=== PATIENT | female | born 1980 | race Caucasian/White ===

== ENCOUNTER 2024-10-26 20:10 | Emergency (ER) | payer SELFPAY ==
[2024-10-26] VITALS (8 sets, daily range): BP systolic 95–148; BP diastolic 51–94; PULSE 115–167; RESP 16–34; TEMP 37.3; O2SAT 94–99
--- NOTE | 2024-10-26 20:20 | XRR_ITS ---
PROCEDURE INFORMATION: Exam: XR Chest Exam date and time: 10/26/2024 8:23 PM Age: 44 years old Clinical indication: Multiple seizures. Reported history of seizure disorder. ; Additional info: Anel TECHNIQUE: Imaging protocol: Radiologic exam of the chest. Views: 1 view. COMPARISON: No relevant prior studies available. FINDINGS: Lungs: Very mild predominantly linear left basilar airspace disease. Right lung appears grossly clear. Pleural spaces: Unremarkable. No pleural effusion. No pneumothorax. Heart/Mediastinum: Unremarkable. No cardiomegaly. Bones/joints: Unremarkable. XR/XR chest 1V portable [id number] IMPRESSION: Mild left basilar airspace disease most suggestive of subsegmental atelectasis rather than infiltrate.
--- NOTE | 2024-10-26 20:20 | CTR_ITS ---
PROCEDURE INFORMATION: Exam: CT Head Without Contrast Exam date and time: 10/26/2024 8:48 PM Age: 44 years old Clinical indication: Multiple seizures. Reported history of seizure disorder. ; Additional info: Sz TECHNIQUE: Imaging protocol: Computed tomography of the head without contrast. Radiation optimization: All CT scans at this facility use at least one of these dose optimization techniques: automated exposure control; mA and/or kV adjustment per patient size (includes targeted exams where dose is matched to clinical indication); or iterative reconstruction. COMPARISON: No relevant prior studies available. RADIATION DOSE METRICS: Total DLP (mGy-cm): 1017.58 FINDINGS: Brain: No acute infarction, hemorrhage, mass, or extra-axial fluid collection is identified. No midline shift. Cerebral ventricles: No hydrocephalus. Paranasal sinuses: Paranasal sinuses are grossly clear. Mastoid air cells: Mastoid air cells are grossly clear. Bones: Calvarium appears intact. Soft tissues: Unremarkable. CT/CT head wo con* [id number] IMPRESSION: No acute intracranial abnormality.
--- NOTE | 2024-10-26 20:21 | ECG_ITS ---
[facility] Date: 2024-10-26 Pat Name: Nicki Owen Department: Room: Gender: Female Instrument Repairer: : 1980 Requested By: Ashish Mccloud Order Number: [id number] [place] MD: Crystal Madrid M.D. Measurements Intervals Premier Rate: 129 P: 62 IL: 151 QRS: 51 QRSD: 80 T: 37 QT: 384 QTc: 564 Interpretive Statements SINUS TACHYCARDIA NONSPECIFIC ST & T-WAVE ABNORMALITY ABNORMAL RHYTHM ECG No previous ECG available for comparison Electronically Signed On 10-28-2024 08:14:37 CDT by Crystal Madrid M.D. [email or web address] [id number]
[2024-10-26] MEDS: LORazepam 1 MG/0.5 ML injection 2 MG IVP ×2 (20:29→20:32)
--- OUTSIDE RECORDS SUMMARY | 2024-10-26 20:37 | XMS_ITS | Encounter Summary ---
Author Organization [facility] Address [address] [place] [address] Care Team Providers Care Asphalt Spreader Operator Name Role Phone Yeimy Ramon APRN Primary Care Provider [phone] Encounter Details Date Type Department Care Team ([facility] st Contact Info) Description 04/15/2024 Outside Records [facility] [address] [facility] [place] [address] Interface, Provider Social History Tobacco Use Types Packs/Day Years Used Date Smoking Tobacco: Never Smokeless Tobacco: Never Alcohol Use Standard Drinks/Week Comments Never 0 (1 standard drink = 0.6 oz pur e alcohol) Health Literacy Answer Date Recorded Health Literacy 1 05/08/2023 Comments Unknown Sex and Gender Information Value Date Recorded Sex Assigned at Not on file Legal Sex Female 1:59 PM CDT Gender Identity Not on file Sexual Orientation Not on file documented as of this encounter Plan of Treatment Not on file documented as of this encounter Visit Diagnoses Not on filedocumented in this encounter Care Teams Asphalt Spreader Operator Relationship Specialty Start Date End Date Yeimy Ramon APRN [address] [phone] PCP - General Nurse Practitioner Family 04/23/24 documented as of this encounter
--- OUTSIDE RECORDS SUMMARY | 2024-10-26 20:37 | XMS_ITS | Encounter Summary ---
Author Organization [facility] Address [address] [place] [address] Care Team Providers Care Marketing Operations Assistant Name Role Phone Yeimy Ramon APRN Primary Care Provider [phone] Reason for Referral * EVAL & TREAT (Routine) - Closed Specialty Diagnoses / Procedures Referred By Contac t Referred To Contact Neurology Diagnoses Unspecified convulsions (HCC) Seizure (HCC) Penny Maloney MD [facility] [address] [place] [address] Phone: tel: fax: [facility] [address] [place] [address] Phone: tel: fax: Referral ID Status Reason Start Date Expiration Date V isits Requested Visits Authorized [id number] Closed Specialty Services Required 03/20/2024 03/20/2025 1 1 Question Answer Additional Detail Epilepsy ? No FORGER Encounter Details Date Type Department Care Team (Late st Contact Info) Description 03/20/2024 Order Engraver [place] [address] External Referring Provider, Not In System [address] [place] [address] Unspecified convulsions (HCC) (Primary Dx); Seizure (HCC) Social History Tobacco Use Types Packs/Day Years [...] as of this encounter Plan of Treatment Scheduled Referrals Name Type Priority Associated Diagnoses Order Schedule Ambulatory Referral to Neurology Outpatient Referral Routine Unspecified convulsions (HCC) Seizure (HCC) 1 Occurrences starting 03/20/2024 until 03/20/2025 documented as of this encounter Visit Diagnoses Diagnosis Unspecified convulsions (HCC)- Primary Seizure (HCC) Other convulsions documented in this encounter Care Teams Marketing Operations Assistant Relationship Specialty Start Date End Date Yeimy Ramon APRN [address] [address] PCP - General Nurse Practitioner Family 04/23/24 documented as of this encounter
--- OUTSIDE RECORDS SUMMARY | 2024-10-26 20:37 | XMS_ITS | Encounter Summary ---
Author Organization [facility] Address [address] [place] [address] Care Team Providers Care Overedge Machine Operator Name Role Phone TristenYeimy ASAF Primary Care Provider [phone] Reason for Referral * EVAL & TREAT (Urgent) - Closed Specialty Diagnoses / Procedures Referred By Carl martin Referred To Contact Gastroenterology Diagnoses Sclerosing mesenteritis (HCC) Dariana Ward NP [address] [place] [address] Phone: tel: fax: [facility] [address] [place] [address] Phone: tel: fax: Referral ID Status Reason Start Date Expiration Date V isits Requested Visits Authorized [id number] Closed Specialty Services Required 09/25/2022 09/26/2023 1 1 Question Answer Additional Details General GI Clinic Encounter Details Date Type Department Care Team (Latest Contact Info) Description 09/25/2022 Order Battery Container [place] [address] Dariana Wadr NP [address] [phone] Sclerosing mesenteritis (HCC) (Primary Dx) Social History Tobacco Use Types Packs/Day Years Used Date Smoking Tobacco: Never Assessed Comments Unknown Sex and Gender Information Value Date Recorded Sex Assigned at Not on file Legal Sex Female 1:59 PM CDT Gender Identity Not on file Sexual Orientation Not on file documented as of this encounter Plan of Treatment Scheduled Referrals Name Type Priority Associated Diagnoses Order Schedule Ambulatory Referral to Gastroenterology Outpatient Referral Routine Sclerosing mesenteritis (HCC) 1 Occurrences starting 09/25/2022 until 09/26/2023 documented as of this encounter Visit Diagnoses Diagnosis Sclerosing mesenteritis (HCC)- Primary Sclerosing mesenteritis documented in this encounter Care Teams Overedge Machine Operator Relationship Specialty Start Date End Date Yeimy Ramon APRN [address] [phone] PCP - General Nurse Practitioner Family 04/23/24 documented as of this encounter
--- OUTSIDE RECORDS SUMMARY | 2024-10-26 20:37 | XMS_ITS | Encounter Summary ---
Author Organization [facility] Address [address] [place] [address] Care Team Providers Care Lifestyle Coordinator Name Role Phone Isabel Torres Primary Care Provider [phone] Encounter Details Date Type Department Care Team (Late Contact Info) Description 11/28/2016 Orders Only [facility] Radiology [address] [facility] [place] [address] System, Provider Not In, [address] [facility] [place] [address] Social History Tobacco Use Types Packs/Day Years Used Date Smoking Tobacco: Never Alcohol Use Standard Drinks/Week Comments Yes 0 (1 standard drink = 0.6 oz pur e alcohol) rarely Comments No Sex and Gender Information Value Date Recorded Sex Assigned at Not on file Legal Sex Female 10:37 AM CDT Gender Identity Not on file Sexual Orientation Not on file documented as of this encounter Plan of Treatment Upcoming Encounters Date Type Department Care Team (Late st Contact Info) Description 11/13/2024 1:00 PM CDT Office Visit [facility] [place] - Primary Care [address] [place] [address] Melissa Alejandra FNP-C [address] [place] [address] documented as of this encounter Procedures Procedure Name Priority Date/Time Associated Diagnosis Comments OUTSIDE IMAGES 11/28/2016 8:09 AM CDT documented in this encounter Results * Outside Images (11/28/2016 8:09 AM CDT) Anatomical Region Laterality Modality N/A Radiographic Angelina ging 11/28/2016 8:09 AM CDT Narrative 11/28/2016 8:09 AM CDT Historic images from [facility] exist and can be viewed by using the hyperlink to access [employer]: US 2D ECHO Procedure Note System, Provider Not In, - 03/17/2020 Historic images from [facility] exist and can be viewed byusing the hyperlink to access [employer]: US 2D ECHO us Provider Not In System MD [facility] Final Result documented in this encounter Visit Diagnoses Not on filedocumented in this encounter Care Teams Lifestyle Coordinator Relationship Specialty Start Date End Date Isabel Torres FNP [facility] [address] [place] [address] PCP - General Nurse Practitioner 03/03/18 documented as of this encounter
--- OUTSIDE RECORDS SUMMARY | 2024-10-26 20:37 | XMS_ITS | Clinical Summary ---
Author Organization [facility] Address [address] [place] [place] [address] Care Team Providers Care Program Administrator Name Role Phone [place], Isabel BALDEV Primary Care Provider [phone] Allergies No known active allergies Medications phentermine (ADIPEX-P) 37.5 mg tablet Take 37.5 mg by mouth daily. Active ASHLYNA 0.15 mg-30 mcg (84)/10 mcg (7) tablets,dose pack,3 month Take 1 tablet by mouth daily. 11/13/2015 Active multivitamin capsule Take 1 capsule by mouth daily. Active busPIRone (BUSPAR) 5 MG tablet TAKE 1 TABLET BY MOUTH 3 TIMES A DAY 2 01/22/2017 Active propranolol (INDERAL) 10 MG tablet TAKE 1 TABLET BY MOUTH TWICE DAILY 2 01/22/2017 Active venlafaxine (EFFEXOR-XR) 75 MG 24 hr capsule TAKE 1 CAPSULE(S) EVERY DAY BY MOUTH. 1 02/01/2017 Active Active Problems Problem Noted Date Diagnosed Date Viral syndrome 04/07/2017 Encounters Date Type Department Care Team Description 10/01/2024 Travel from Last 3 Months Social History Tobacco Use Types Packs/Day Years Used Date Smoking Tobacco: Never Smokeless Tobacco: Never Alcohol Use Standard Drinks/Week Comments Yes 0 (1 standard drink = 0.6 oz pur e alcohol) rarely Comments No Sex and Gender Information Value Date Recorded Sex Assigned at Not on file Legal Sex Female 10:37 AM CDT Gender Identity Not on file Sexual Orientation Not on file Last Filed Vital Signs Vital Sign Reading Time Taken Comments Blood Pressure 132/80 03/03/2018 1:36 PM EMAIL DEVELOPER Pulse 100 04/07/2017 9:52 AM EMAIL DEVELOPER Temperature 36.9 C (98.4 F) 03/03/2018 1:36 PM EMAIL DEVELOPER Respiratory Rate 18 01/24/2016 11:35 AM EMAIL DEVELOPER Oxygen Saturation 99% 04/07/2017 9:52 AM EMAIL DEVELOPER Inhaled Oxygen Concentration - - Weight 92.1 kg (203 lb) 03/03/2018 1:36 PM EMAIL DEVELOPER Height 170.2 cm (5' 7 ) 01/24/2016 11:35 AM EMAIL DEVELOPER Body Mass Index 31.79 01/24/2016 11:35 AM EMAIL DEVELOPER Plan of Treatment Upcoming Encounters Date Type Department Care Team (Late st Contact Info) Description 11/13/2024 1:00 PM CDT Office Visit [facility] [place] - Primary Care [address] [facility] [place] [address] Melissa Alejandra FNP-C [address] [facility] [address] [place] [address] Health Maintenance Due Date Last Done Comments Annual Wellness 1980 Pap Smear 01/13/2001 HPV Vaccines (1 - 3-dose SCDM series) 01/13/2007 Mammogram 2020 Influenza Vaccination (#1) 09/12/202412/22, 12/18/2021, 11/23/2017, Additional history exists COVID-19 Vaccine ( season) 2024 08/05/2020, 07/08/2020 Td, Tdap Vaccines Adult 10/07/2031 10/07/19 22, 08/31/2011, 11/13/2007, Additional history exists IPV Vaccines Completed 06/11/1985, 09/14, 1980, Additional history exists Hepatitis A Vaccines Aged Out 05/15/2012, 10/17/2011, 08/31/2011 No longer eligible based on patient's age to complete this topic Hepatitis B Vaccines Completed 05/15/2012, 10/17/2011, 08/31/2011, Additional history exists HIB Vaccines Aged Out No longer eligi ble based on patient's age to complete this topic Meningococcal Vaccines Aged Out No lo nger eligible based on patient's age to complete this topic Pneumococcal Vaccine: Pediatrics (0 to 5 Years) and At-Risk Patients (6 to 49 Years) Aged Out No longer eligible based on patient's age to complete this topic RSV Mab Nirsevimab (Beyfortus) <20 months Aged Out No longer eligibl e based on patient's age to complete this topic Rotavirus Vaccines Aged Out No longer eligible based on patient's age to complete this topic Care Teams Program Administrator Relationship Specialty Start Date End Date Isabel Torres FNP [facility] [address] [place] [address] PCP - General Nurse Practitioner 03/03/18
--- OUTSIDE RECORDS SUMMARY | 2024-10-26 20:37 | XMS_ITS | Clinical Summary ---
Author Organization [facility] Address [address] [place] [address] Phone Care Team Providers Care Senior Dentist Name Role Phone Yohana Pompa COUNSELING DEPARTMENT CHAIR Primary Care Provider Allergies No known active allergies Immunizations Immunization Administration Dates Next Due Moderna COVID-19 Vaccine 08/05/2020,07/08/2020 Social History Tobacco Use Types Packs/Day Years Used Date Smoking Tobacco: Never Smokeless Tobacco: Never Tobacco Cessation:Counseling Given: Not Answered Alcohol Use Standard Drinks/Week Comments Never 0 (1 standard drink = 0.6 oz pur e alcohol) Comments Unknown Sex and Gender Information Value Date Recorded Sex Assigned at Not on file Legal Sex Female 1:18 PM COOKIE MIXER HELPER Gender Identity Not on file Sexual Orientation Not on file Last Filed Vital Signs Vital Sign Reading Time Taken Comments Blood Pressure 101/58 04/14/2023 4:56 PM COOKIE MIXER HELPER Pulse 66 04/14/2023 4:56 PM COOKIE MIXER HELPER Temperature 36.6 C (97.9 F) 04/14/2023 1:34 PM COOKIE MIXER HELPER Respiratory Rate 14 04/14/2023 4:56 PM COOKIE MIXER HELPER Oxygen Saturation 99% 04/14/2023 4:56 PM COOKIE MIXER HELPER Inhaled Oxygen Concentration - - Weight 57.6 kg (127 lb) 04/14/2023 1:34 PM COOKIE MIXER HELPER Height 170.2 cm (5' 7 ) 04/14/2023 1:34 PM COOKIE MIXER HELPER Body Mass Index 19.89 04/14/2023 1:34 PM COOKIE MIXER HELPER Plan of Treatment Health Maintenance Due Date Last Done Comments Annual Depression Screening 01/13/1991 Annual Physical 01/13/1998 Hepatitis C Antibody Screen 01/13/1998 Cervical Cancer Screening 01/13/2001 DTap/Tdap/Td Vaccines (2 - Td or Tdap) 11/12/2017 Mammogram 2020 COVID-19 Vaccine (3 - season) 2024, 07/08/2020 Flu Vaccine (#1) 10/13/2024 11/23/2017, 11/24/2016 Influenza Vaccine 10/13/2024 11/23/2017, 11/24/2016 Insurance [facility] [employer] Care Teams Senior Dentist Relationship Specialty Start Date End Date Yohana Pompa NP [address] [facility] [address] [place] [phone] PCP - General 03/20/18
--- OUTSIDE RECORDS SUMMARY | 2024-10-26 20:37 | XMS_ITS | Encounter Summary ---
Author Organization [facility] Address [address] [place] [address] Care Team Providers Care Emission Specialist Name Role Phone Yeimy Ramon APRN Primary Care Provider [phone] Encounter Details Date Type Department Care Team ([facility] st Contact Info) Description 04/05/2023 [place] [address] Yeimy Ramon APRN [address] [phone] Social History Tobacco Use Types Packs/Day Years Used Date Smoking Tobacco: Never Assessed Comments Unknown Sex and Gender Information Value Date Recorded Sex Assigned at Not on file Legal Sex Female 1:59 PM CDT Gender Identity Not on file Sexual Orientation Not on file COVID-19 Exposure Response Date Recorded In the last 10 days, have yo u been in contact with someone who was confirmed or suspected to have Coronavirus/COVID-19? No / Unsure 04/07/2023 9:58 AM DIRECTOR OF IT OPERATIONS documented as of this encounter Plan of Treatment Not on file documented as of this encounter Visit Diagnoses Not on filedocumented in this encounter Care Teams Emission Specialist Relationship Specialty Start Date End Date Yeimy Ramon APRN [address] [phone] PCP - General Nurse Practitioner Family 04/23/24 documented as of this encounter
--- OUTSIDE RECORDS SUMMARY | 2024-10-26 20:37 | XMS_ITS | Encounter Summary ---
Author Organization [facility] Address [address] [facility] [place] [address] Care Team Providers Care Bilingual Branch Manager Name Role Phone Yeimy Ramon APRN Primary Care Provider [phone] Encounter Details Date Type Department Care Team ([facility] st Contact Info) Description 05/21/2023 Outside Records [facility] [address] [facility] [place] [address] Interface, Provider Social History Tobacco Use Types Packs/Day Years Used Date Smoking Tobacco: Never Smokeless Tobacco: Never Health Literacy Answer Date Recorded Health Literacy [...] suspected to have Coronavirus/COVID-19? No / Unsure 05/07/2023 10:11 AM CDT documented as of this encounter Plan of Treatment Not on file documented as of this encounter Visit Diagnoses Not on filedocumented in this encounter Care Teams Bilingual Branch Manager Relationship Specialty Start Date End Date Yeimy Ramon APRN [address] [address] PCP - General Nurse Practitioner Family 04/23/24 documented as of this encounter
--- OUTSIDE RECORDS SUMMARY | 2024-10-26 20:37 | XMS_ITS | Encounter Summary ---
Author Organization [facility] [employer] Address [address] [place] [address] Care Team Providers Care Waste Treatment Operator Name Role Phone Tristen Yeimy ASAF Primary Care Provider [phone] Reason for Referral * EVAL & TREAT (Routine) - Closed Specialty Diagnoses / Procedures Referred By Contac t Referred To Contact Neurology Diagnoses Unspecified convulsions (HCC) Penny Maloney MD [address] [place] [address] Phone: tel: fax: Neurology Clinic [address] [place] [address] Phone: tel: fax: Referral ID Status Reason Start Date Expiration Date V isits Requested Visits Authorized [id number] Closed Specialty Services Required 01/07/2024 01/06/2025 1 1 Question Answer Additional Detail Epilepsy ? No MBLER RUBBER FOOTWEAR Encounter Details Date Type Department Care Team (Latest Contact Info) Description 01/07/2024 Order [place] [address] Penny Maloney MD [address] [place] [address] Unspecified convulsions (HCC) (Primary Dx) Social History Tobacco Use [...] Neurology Outpatient Referral Routine Unspecified convulsions (HCC) 1 Occurrences starting 01/07/2024 until 01/06/2025 documented as of this encounter Visit Diagnoses Diagnosis Unspecified convulsions (HCC)- Primary documented in this encounter Care Teams Waste Treatment Operator Relationship Specialty Start Date End Date Yeimy Ramon APRN [address] [phone] PCP - General Nurse Practitioner Family 04/23/24 documented as of this encounter
--- OUTSIDE RECORDS SUMMARY | 2024-10-26 20:37 | XMS_ITS | Encounter Summary ---
Author Organization [facility] Address [address] [facility] [place] [address] Care Team Providers Care Brand Protection Manager Name Role Phone Yeimy Ramon APRN Primary Care Provider [phone] Encounter Details Date Type Department Care Team ([facility] st Contact Info) Description 07/30/2023 Outside Records [facility] [address] [facility] [place] [address] Interface, Provider Social History Tobacco Use Types [...] suspected to have Coronavirus/COVID-19? No / Unsure 07/27/2023 3:34 PM CDT documented as of this encounter Plan of Treatment Not on file documented as of this encounter Visit Diagnoses Not on filedocumented in this encounter Care Teams Brand Protection Manager Relationship Specialty Start Date End Date Yeimy Ramon APRN [address] [phone] PCP - General Nurse Practitioner Family 04/23/24 documented as of this encounter
--- OUTSIDE RECORDS SUMMARY | 2024-10-26 20:37 | XMS_ITS | Clinical Summary ---
Author Organization [facility] Address [address] [facility] [place] [address] Phone Care Team Providers Care Inspector Tester Sorter Name Role Phone Unavailable Primary Care Provider Unavailabl e Allergies No known active allergies Social History Tobacco Use Types Packs/Day Years Used Date Smoking Tobacco: Never Assessed Comments Yes Sex and Gender Information Value Date Recorded Sex Assigned at Not on file Legal Sex Female 2:02 PM CDT Gender Identity Not on file Sexual Orientation Not on file Last Filed Vital Signs Vital Sign Reading Time Taken Comments Blood Pressure 103/53 06/04/2021 5:47 PM CDT Pulse - - Temperature 36.9 C (98.4 F) 06/04/2021 5:47 PM CDT Respiratory Rate 18 06/04/2021 5:47 PM CDT Oxygen Saturation 100% 06/04/2021 5:47 PM CDT Inhaled Oxygen Concentration - - Weight 90.7 kg (200 lb) 06/04/2021 2:09 PM CDT Height 170.2 cm (5' 7 ) 06/04/2021 2:09 PM CDT Body Mass Index 31.32 06/04/2021 2:09 PM CDT Plan of Treatment Health Maintenance Due Date Last Done Comments DTAP/TDAP/TD VACCINES (1 - Tdap) 01/13/1999 HEPATITIS B VACCINES (1 of 3 - 19+ 3-dose series) 03/1998 HPV/Cotest (21-29) 01/13/2001 HPV VACCINES (1 - 3-dose SCDM series) 01/13/2007 CERVICAL CANCER SCREENING 01/13/2010 HPV/Cotest (30-65) 01/13/2010 PAP SMEAR 01/13/2010 BREAST CANCER SCREENING 2020 INFLUENZA VACCINE (#1) 2024 RSV VACCINE (60+ or ) (1 - 1-dose 75+ series) 01/13/2055 Insurance [facility] [facility]
--- OUTSIDE RECORDS SUMMARY | 2024-10-26 20:37 | XMS_ITS | Clinical Summary ---
Author Organization [facility] Address [address] [place] [address] Care Team Providers Care Stock Pitcher Name Role Phone TristenEricYeimy ASAF Primary Care Provider [phone] Allergies Active Allergy Reactions Criticality Noted Date Comments Metoclopramide 05/08/2023 Medications clonazePAM (KLONOPIN) 1 MG tablet Take one tablet (1 mg) by mouth 3 (three) times a day as needed for anxiety. Active FLUoxetine (PROZAC) 20 MG capsule Take one capsule (20 mg) by mouth 2 (two) times a day. Active lamoTRIgine (LAMICTAL) 150 MG tablet Take 100 mg by mouth 2 (two) times a day. 100mg Active ondansetron (ZOFRAN) 4 MG tablet Take one tablet (4 mg) by mouth every 12 (twelve) hours as needed for nausea. Active SUMAtriptan (IMITREX) 25 MG tablet Take one tablet (25 mg) by mouth every 2 (two) hours as needed for migraine. Active lurasidone (LATUDA) 20 mg Tab Take one tablet (20 mg) by mouth 2 (two) times a day. 04/21/2024 Active zonisamide (ZONEGRAN) 100 MG capsule Take one capsule (100 mg) by mouth at bedtime for 7 days, THEN two capsules (200 mg) at bedtime. 60 capsule 5 04/23/2024 05/01/19 26 Active Active Problems Problem Noted Date Diagnosed Date Gastroparesis 05/08/2023 Abnormal liver function 12/25/2016 04/07/19 24 Social History Tobacco Use Types Packs/Day Years [...] Sign Reading Time Taken Comments Blood Pressure 103/55 04/23/2024 11:22 AM CDT Pulse 87 04/23/2024 11:22 AM CDT Temperature 36.3 C (97.3 F) 03/20/2024 8:56 AM GENERAL ACCOUNTING CLERK Respiratory Rate 18 05/08/2023 12:41 PM CDT Oxygen Saturation 100% 03/20/2024 8:56 AM GENERAL ACCOUNTING CLERK Inhaled Oxygen Concentration - - Weight 84.5 kg (186 lb 3.2 oz) 04/23/2024 11:22 AM CDT Height 170.2 cm (5' 7 ) 04/23/2024 11:22 AM CDT Body Mass Index 29.16 04/23/2024 11:22 AM CDT Plan of Treatment Health Maintenance Due Date Last Done Comments Hepatitis C Screening 1980 Mammogram 1980 Anxiety Screening 1988 HIV Screening 01/13/1995 Depression Screening 01/13/1998 Hepatitis B Vaccine (3 of 3 - Hep B Twinrix 3-dose series) 04/20/2000 11/21/1999, 10/21/1998 Pap Smear 01/13/2001 Cervical Cancer Screening (30-65) 01/13/2010 HPV/Cotest 01/13/2010 Lipid Panel 2020 COVID-19 Vaccine (3 - 2024-2 6 season) 2024 08/05/2020, 07/08/2020 Influenza Series (#1) 2024 12/22/2022 , 11/23/2017, 11/24/2016 TDAP/DTaP/TD Vaccines (4 - T d or Tdap) 10/07/2031 10/06/2021, 11/13/2007, 10/08/1995 Meningococcal B Vaccine Aged Out No l onger eligible based on patient's age to complete this topic Pneumococcal Vaccine 0-50 years Aged Out No longer eligible b ased on patient's age to complete this topic Insurance BCBS OUT OF STATE Care Teams Stock Pitcher Relationship Specialty Start Date End Date Yeimy Ramon APRN [address] [address] PCP - General Nurse Practitioner Family 04/23/24
--- OUTSIDE RECORDS SUMMARY | 2024-10-26 20:37 | XMS_ITS | Encounter Summary ---
Author Organization [facility] Address [address] [facility] [place] [address] Care Team Providers Care Manager Interface Name Role Phone Yeimy Ramon APRN Primary Care Provider [phone] Encounter Details Date Type Department Care Team ([facility] st Contact Info) Description 04/29/2024 Outside Records [facility] [address] [facility] [place] [address] Interface, Provider Social History Tobacco Use Types [...] on filedocumented in this encounter Care Teams Manager Interface Relationship Specialty Start Date End Date Yeimy Ramon APRN [address] [address] PCP - General Nurse Practitioner Family 04/23/24 documented as of this encounter
--- OUTSIDE RECORDS SUMMARY | 2024-10-26 20:37 | XMS_ITS | Encounter Summary ---
Author Organization [facility] Address [address] [place] [address] Care Team Providers Care Title Officer Name Role Phone Isabel Torres Primary Care Provider [phone] Encounter Details Date Type Department Care Team (Late Contact Info) Description 11/28/2016 Orders Only [facility] Radiology [address] [facility] [place] [address] System, Provider Not In, [address] [facility] [address] Social History Tobacco Use Types Packs/Day Years [...] Description 11/13/2024 1:00 PM CDT Office Visit [facility] - Primary Care [address] [place] [address] Melissa Alejandra FNP-C [address] [place] [address] documented as of this encounter Procedures Procedure Name Priority Date/Time Associated Diagnosis Comments OUTSIDE IMAGES 11/28/2016 8:51 AM CDT documented in this encounter Results * Outside Images (11/28/2016 8:51 AM CDT) Anatomical Region Laterality Modality N/A Radiographic Angelina ging 11/28/2016 8:51 AM CDT Narrative 11/28/2016 8:51 AM CDT Historic images from [facility] exist and can be viewed by using the hyperlink to access [employer] pacs: CTA CHEST Procedure Note System, Provider Not In, MD - 03/17/2020 Historic images from [facility] exist and can be viewed byusing the hyperlink to access Science pacs: CTA CHEST us Provider Not In System MD JUSTICE GENERAL IMAGING OR DERABLES Final Result documented in this encounter Visit Diagnoses Not on filedocumented in this encounter Care Teams Title Officer Relationship Specialty Start Date End Date Isabel Torres FNP [facility] [address] [place] [address] PCP - General Nurse Practitioner 03/03/18 documented as of this encounter
[2024-10-26] MEDS: levETIRAcetam 1,500 MG/100 ML PREMIX 400 MG IV (20:38)
[2024-10-26] MEDS: dilTIAZem 5 mg/mL SDV 5 mL 10 MG IVP (20:45)
[2024-10-26 20:52] LABS: Hematocrit 36.7 % (36-47); Hemoglobin 12.30 g/dL (11.27-16.99); Mean Corpuscular HGB Conc 33.5 g/dL (30-55); Mean Corpuscular Hemoglobin 29.9 pg (27-33); Mean Corpuscular Volume 89.1 fl (85-98); Nucleated Red Blood Cells % 0 %; Platelet Count 344 10^3/cmm (157-399); Red Blood Count 4.12 10^6/uL (3.85-5.65); White Blood Count 10.19 10^3/uL (3.29-11.43)
[2024-10-26 21:13] LABS: Alanine Aminotransferase 56 U/L (0-33); Albumin Level 4.5 g/dL (3.5-5.2); Alkaline Phosphatase 90 U/L (35-105); Anion Gap 27.4 (5-19); Aspartate Amino Transferase 36 U/L (0-32); Blood Urea Nitrogen 9 mg/dL (6-20); Calcium 9.1 mg/dL (8.5-10.5); Carbon Dioxide 15 mmol/L (22-29); Chloride 99 mmol/L (98-107); Globulin 3.0 g/dL (1.3-4.6); Glucose 98 mg/dL (65-115); Magnesium 2.1 mg/dL (1.7-2.3); Osmolality Calculated 285 mOsm/kg (285-295); Potassium 3.4 mmol/L (3.5-5.1); Sodium 138 mmol/L (136-145); Total Protein 7.5 g/dL (6.6-8.7)
[2024-10-26] MEDS: midazolam 1 mg/mL INJ 2 mL 4 MG IVP ×2 (21:20→22:01)
--- NOTE | 2024-10-26 21:20 | PC.NURSE ---
Versed Override Per verbal order from ER physician, 4 mg IV Versed stat. Medication overridden from pyxis. Both 2 mg vials verified with ER physician and additional GLASS TOUGHENING OPERATOR. Medication administered with ER physician at bedside.
[2024-10-26 21:33] LABS: Troponin(5th) Baseline < 6 ng/L (0-10)
[2024-10-26 21:37] LABS: Lactic Sepsis W/Reflex 10.6 mmol/L (0.5-2.2)
[2024-10-26] MEDS: LORazepam 1 MG/0.5 ML injection 4 MG IVP (21:49)
[2024-10-26 21:50] LABS: Reflex Lactate Order REFLEX LACTIC ORDERD
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
[2024-10-26 21:53] LABS: HCG, Serum Qual Negative (Negative)
[2024-10-26] MEDS: lidocaine 1% 5 ML in potassium chloride premix 100 ML 52.5 ML IV (22:24)
[2024-10-26] MEDS: midazolam hcl 100 MG/100 ML BAG IV (22:27)
[2024-10-26 22:58] LABS: Glucose Urine UA Negative (Normal); Nitrate Urine Negative (Negative); Specific Gravity, Urine 1.025 (1.005-1.030)
[2024-10-26 23:21] LABS: Add Urine Microscopic? YES
[2024-10-26 23:23] LABS: Troponin 5 2HR 6.71 ng/L (0-10); Troponin 5 2HR Delta 0.71001 ABS# (0-10)
[2024-10-26 23:24] LABS: Lactic Acid level (Lactate) 3.4 mmol/L (0.5-2.2)
[2024-10-26] MEDS: levETIRAcetam 1,000 MG/100 ML PREMIX 400 MG IV (23:45)
[2024-10-26 23:48] LABS: UA Slide Review UA Slide Review Perf
--- NOTE | 2024-10-27 03:41 | PC.NURSE ---
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 Pt was assisted to floor, and 2 episodes of seizure activity was witnessed. Per dayshift MANAGEMENT ADVISOR, first seizure lasted 25 seconds and second seizure last 10-15 seconds. Rapis Response was activated. Left AC IV was established, pt was transferred to ER [facility]. ER DR at [facility]. HR 1453, B/P 153/87, 98% on RA, RR 22, glucose 104. Pt was transported on monitor by this RN, KEY CARRIER and ICU NT. Pt awake enough during entrance to ER to give name and and contact information.
== END 2024-10-27 00:30 | disposition short-term general hospital (02) ==
PROVIDERS: Emergency Provider Emergency Medicine
DX: G40.901 Epilepsy, unspecified, not intractable, with status epilepticus (principal)
CPT/HCPCS: 36415; 70450; 71045; 80053; 81001; 82550; 83605; 83735; 84100; 84484; 84703; 85025; 86140; 93005; 96365; 96366; 96367; 96375; 96376; 99291; 99292; J1953; J2060; J2250; J3480; J3490; J7030; J9999

== ENCOUNTER 2024-11-05 18:48 | Emergency (ER) | payer SELFPAY ==
[2024-11-05] VITALS (7 sets, daily range): BP systolic 93–139; BP diastolic 42–78; PULSE 92–129; RESP 15–17; TEMP 37.2; O2SAT 96–100; BMI 35.2
--- OUTSIDE RECORDS SUMMARY | 2024-11-05 18:50 | XMS_ITS | Encounter Summary ---
Author Organization [facility] Address [address] [place] [address] Care Team Providers Care Bone Char Operator Name Role Phone Isabel Torres Primary Care Provider [phone] Encounter Details Date Type Department Care Team (Late Contact Info) Description 11/28/2016 Orders Only [facility] Radiology 211 [facility] [place] [address] System, Provider Not In, [address] [facility] [place] [address] Social History Tobacco Use Types Packs/Day Years [...] Description 11/13/2024 1:00 PM CDT Office Visit [facility] - Primary Care [address] [place] [address] Melissa Alejandra FNP-C [address] [place] [address] documented as of this encounter Procedures Procedure Name Priority Date/Time Associated Diagnosis Comments OUTSIDE IMAGES 11/28/2016 8:51 AM CDT documented in this encounter Results * Outside Images (11/28/2016 8:51 AM CDT) Anatomical Region Laterality Modality N/A Radiographic Angelina ging 11/28/2016 8:51 AM CDT Narrative 11/28/2016 8:51 AM CDT Historic images from [facility] exist and can be viewed by using the hyperlink to access [employer] pacs: CTA CHEST Procedure Note System, Provider Not In, MD - 03/17/2020 Historic images from [facility] exist and can be viewed byusing the hyperlink to access [employer] pacs: CTA CHEST us Provider Not In System MD JUSTICE GENERAL IMAGING OR DERABLES Final Result documented in this encounter Visit Diagnoses Not on filedocumented in this encounter Care Teams Bone Char Operator Relationship Specialty Start Date End Date Isabel Torres FNP [facility] [address] [place] [address] PCP - General Nurse Practitioner 03/03/18 documented as of this encounter
--- OUTSIDE RECORDS SUMMARY | 2024-11-05 18:50 | XMS_ITS | Clinical Summary ---
Author Organization [facility] Address [address] [place] [address] Phone Care Team Providers Care Substation Inspector Name Role Phone Yohana Pompa INSTRUCTIONAL FACILITATOR Primary Care Provider Allergies No known active [...] on file Legal Sex Female 1:18 PM ELIGIBILITY MANAGER Gender Identity Not on file Sexual Orientation Not on file Last Filed Vital Signs Vital Sign Reading Time Taken Comments Blood Pressure 101/58 04/14/2023 4:56 PM ELIGIBILITY MANAGER Pulse 66 04/14/2023 4:56 PM ELIGIBILITY MANAGER Temperature 36.6 C (97.9 F) 04/14/2023 1:34 PM ELIGIBILITY MANAGER Respiratory Rate 14 04/14/2023 4:56 PM ELIGIBILITY MANAGER Oxygen Saturation 99% 04/14/2023 4:56 PM ELIGIBILITY MANAGER Inhaled Oxygen Concentration - - Weight 57.6 kg (127 lb) 04/14/2023 1:34 PM ELIGIBILITY MANAGER Height 170.2 cm (5' 7 ) 04/14/2023 1:34 PM ELIGIBILITY MANAGER Body Mass Index 19.89 04/14/2023 1:34 PM ELIGIBILITY MANAGER Plan of Treatment Health Maintenance Due Date Last Done Comments Annual Depression Screening 01/13/1991 Annual Physical 01/13/1998 Hepatitis C Antibody Screen 01/13/1998 Cervical Cancer Screening 01/13/2001 DTap/Tdap/Td Vaccines (2 - Td or Tdap) 11/12/2017 Mammogram 2020 COVID-19 Vaccine (1 - season) 2024, 07/08/2020 Flu Vaccine (#1) 10/13/2024 11/23/2017, 11/24/2016 Influenza Vaccine 10/13/2024 11/23/2017, 11/24/2016 Insurance [facility] Care Teams Substation Inspector Relationship Specialty Start Date End Date Yohana Pompa NP [address] [facility] [address] [place] [phone] PCP - General 03/20/18
--- OUTSIDE RECORDS SUMMARY | 2024-11-05 18:50 | XMS_ITS | Encounter Summary ---
Author Organization [facility] Address [address] [place] [address] Care Team Providers Care Commissary Agent Name Role Phone Isabel Torres Primary Care Provider [phone] Encounter Details Date Type Department Care Team (Late Contact Info) Description 11/28/2016 Orders Only [facility] Radiology [address] [facility] [place] [address] System, Provider Not In, [address] [facility] [place] [address] Social History Tobacco Use Types Packs/Day Years [...] 1:00 PM CDT Office Visit [facility] - Primary Care [address] [place] [address] Melissa Alejandra FNP-C [address] [place] [address] documented as of this encounter Procedures Procedure Name Priority Date/Time Associated Diagnosis Comments OUTSIDE IMAGES 11/28/2016 8:09 AM CDT documented in this encounter Results * Outside Images (11/28/2016 8:09 AM CDT) Anatomical Region Laterality Modality N/A Radiographic Angelina ging 11/28/2016 8:09 AM CDT Narrative 11/28/2016 8:09 AM CDT Historic images from [facility] exist and can be viewed by using the hyperlink to access [employer] pacs: US 2D ECHO Procedure Note System, Provider Not In, - 03/17/2020 Historic images from [facility] exist and can be viewed byusing the hyperlink to access [employer] pacs: US 2D ECHO us Provider Not In System MD JUSTICE GENERAL IMAGING OR DERABLES Final Result documented in this encounter Visit Diagnoses Not on filedocumented in this encounter Care Teams Commissary Agent Relationship Specialty Start Date End Date Isabel Torres FNP [facility] [address] [place] [address] PCP - General Nurse Practitioner 03/03/18 documented as of this encounter
--- OUTSIDE RECORDS SUMMARY | 2024-11-05 18:51 | XMS_ITS | Clinical Summary ---
Author Organization [facility] Address [address] [place] [address] Care Team Providers Care Installer Molding And Trim Name Role Phone Martin, Isabel BALDEV Primary Care Provider [phone] Allergies No known active allergies Medications phentermine [...] Comments Blood Pressure 132/80 03/03/2018 1:36 PM SHOE SEWING MACHINE OPERATOR AND TENDER Pulse 100 04/07/2017 9:52 AM SHOE SEWING MACHINE OPERATOR AND TENDER Temperature 36.9 C (98.4 F) 03/03/2018 1:36 PM SHOE SEWING MACHINE OPERATOR AND TENDER Respiratory Rate 18 01/24/2016 11:35 AM SHOE SEWING MACHINE OPERATOR AND TENDER Oxygen Saturation 99% 04/07/2017 9:52 AM SHOE SEWING MACHINE OPERATOR AND TENDER Inhaled Oxygen Concentration - - Weight 92.1 kg (203 lb) 03/03/2018 1:36 PM SHOE SEWING MACHINE OPERATOR AND TENDER Height 170.2 cm (5' 7 ) 01/24/2016 11:35 AM SHOE SEWING MACHINE OPERATOR AND TENDER Body Mass Index 31.79 01/24/2016 11:35 AM SHOE SEWING MACHINE OPERATOR AND TENDER Plan of Treatment Upcoming Encounters Date Type Department Care Team (Late st Contact Info) Description 11/13/2024 1:00 PM CDT Office Visit [facility] [place] - Primary Care [address] [facility] [place] [address] Melissa Alejandra FNP-C [address] [facility] [address] [place] [address] Health Maintenance Due Date Last Done [...] age to complete this topic Care Teams Installer Molding And Trim Relationship Specialty Start Date End Date Isabel Torres FNP [facility] [address] [place] [address] PCP - General Nurse Practitioner 03/03/18
--- OUTSIDE RECORDS SUMMARY | 2024-11-05 18:51 | XMS_ITS | Clinical Summary ---
Author Organization [facility] Address [address] [place] [address] Phone Care Team Providers Care Service Developer Name Role Phone Unavailable Primary Care Provider [...] (1 - 1-dose 75+ series) 01/13/2055 Insurance [facility] BLUE ACCESS CHOICE
--- NOTE | 2024-11-05 18:52 | ED_ITS ---
HPI - Seizure 2 General: Chief Complaint: Seizure Stated Complaint: seizure Time Seen by Provider: 11/05/24 18:50 History of Present Illness: HPI Narrative: 44-year-old female with history of seizu re disorder who presents to the emergency room via rapid response from nursing break room on [facility] [place] with seizure activity. Apparently she did take an Ativan up there but she continues to have brief episodes of seizure-like activity. Brief episodes of postictal state. No obvious injuries. No loss of bowel or bladder. Related Data Home Medications ?Medication ?Instructions ?Recorded ?Confirmed fluoxetine 20 mg capsule mg 10/26/24 lamotrigine 100 mg tablet mg 10/26/24 lorazepam 0.5 mg tablet mg 10/26/24 zonisamide 100 mg capsule mg PO 10/26/24 Allergies Allergy/AdvReac Type Severity Reaction Status Date / Time amitriptyline Allergy Unknown Verified 10/26/24 20:38 Review of Systems 2 Narrative: Constitutional symptoms: Negative except as documented in HPI. Skin symptoms: Negative except as documented in HPI. Eye symptoms: Negative except as documented in HPI. ENMT symptoms: Negative except as documented in HPI. Respiratory symptoms: Negative except as documented in HPI. Cardiovascular symptoms: Negative except as documented in HPI. Gastrointestinal symptoms: Negative except as documented in HPI. Genitourinary symptoms: Negative except as documented in HPI. Musculoskeletal symptoms: Negative except as documented in HPI. Neurologic symptoms: Negative except as documented in HPI. Psychiatric symptoms: Negative except as documented in HPI. Endocrine symptoms: Negative except as documented in HPI. This was obtained after seizures were stopped. Physical Exam 2 Narrative: EXAM NARRATIVE: General: On my initial exam patient is having tonic-clonic activity. Skin: Warm, dry. Head: Normocephalic, atraumatic. Neck: Supple, trachea midline. Eye: Extraocular movements are intact. Ears, nose, mouth and throat: mucosa moist. Cardiovascular: Regular, Normal peripheral perfusion. Respiratory: Lungs are clear to auscultation, respirations are non-labored, breath sounds are equal, Symmetrical chest wall expansion. Gastrointestinal: Soft, Nontender, Non distended Musculoskeletal: Normal ROM, no deformity. Neurological: Patient appears to be having an active seizure, no focal neurological deficit observed. Psychiatric: Unable to assess Course 2 Vital Signs: Vital signs: Vital Signs Temperature 98.9 F 11/05/24 18:49 Pulse Rate 113 H 11/05/24 19:04 Respiratory Rate 17 11/05/24 19:04 Blood Pressure 105/62 11/05/24 19:04 Pulse Oximetry 96 11/05/24 19:04 Oxygen Delivery Me thod Room Air 11/05/24 18:49 MDM - Seizure MDM Narrative Medical decision making narrative: Medical decision making: Differential diagnosis for this patient with a complaint of seizure like activity would include but not be limited to, and based on the above HPI, review of systems and physical exam: seizure, DT's, alcohol withdrawal, brain malignancy, pseudo-seizure, syncope. Orders placed to evaluate differential diagnosis based on the above differential, HPI and physical exam Lab Review: Laboratory results were reviewed and interpreted by myself the emergency room physician No leukocytosis. No anemia. ABG shows no acidosis but lactate on lab work is 11. I reviewed the patient's medical record. Reexamination: She tells me that she forgot to take her home zonisamide and lamotrigine. Continues to have seizures which are brief. With brief episodes of postictal state. However lactate is elevated. Consultation: I spoke with Dr. See with the hospitalist on-call at [facility]. Patient was transferred there of the last time she has received care there in the past. Assessment and plan: Seizure ?BAIRON Hayes prior to learning that she had not taken her home meds. I did give her a dose of zonisamide and lamotrigine here. Normal saline bolus. Now attempting Versed. -I discussed the patient with the accepting physician on-call. - Discussed findings and plan with patient. Answered any questions. - All laboratory values were reviewed and interpreted personally by myself, the ER physician - All imaging was reviewed and interpreted personally by myself, the ER physician. - Evaluation and treatment of this problem were appropriate in the emergency setting Lab Data 11/05/24 18:50 11/05/24 18:50 Labs: Laboratory Results WBC 8.04 10^3/uL (3.29-11.43) 11/05/24 18:50 RBC 4.18 10^6/uL (3.85-5.65) 11/05/24 18:50 Hgb 12.50 g/dL (11.27-16.99) 11/05/24 18:50 Hct 36.9 % (36-47) 11/05/24 18:50 MCV 88.3 fl (85-98) 11/05/24 18:50 MCH 29.9 pg (27-33) 11/05/24 18:50 MCHC 33.9 g/dL (30-55) 11/05/24 18:50 RDW 12.7 % (12.1-15.1) 11/05/24 18:50 Plt Count 334 10^3/cmm (157-399) 11/05/24 18:50 MPV 9.9 fL (7.4-10.4) 11/05/24 18:50 Neut % (Auto) 58.0 % 11/05/24 18:50 Lymph % (Auto) 27.6 % 11/05/24 18:50 [place] % (Auto) 11.1 % 11/05/24 18:50 Eos % (Auto) 1.6 % 11/05/24 18:50 Baso % (Auto) 1.1 % 11/05/24 18:50 Neut # (Auto) 4.66 10^3/uL (1.8-7.7) 11/05/24 18:50 Lymph # (Auto) 2.2 10^3/uL (0.8-4.8) 11/05/24 18:50 [place] # (Auto) 0.9 10^3/uL (0.2-0.9) 11/05/24 18:50 Eos # (Auto) 0.1 10^3/uL (0.0-0.8) 11/05/24 18:50 Baso # (Auto) 0.1 10^3/uL (0.0-0.1) 11/05/24 18:50 Nucleated RBC % (auto) 0 % 11/05/24 18:50 Nucleated RBCs # 0.0 /100WBC 11/05/24 18:50 Specimen Type Arterial 11/05/24 19:02 Sample Site Brachial, right 11/05/24 19:02 ABG pH 7.42 (7.35-7.45) 11/05/24 19:02 ABG pCO2 38.9 mmHg (35-45) 11/05/24 19:02 ABG pO2 88.3 mmHg (80.0-100.0) 11/05/24 19:02 ABG HCO3 25.3 mmol/L (22-26) 11/05/24 19:02 ABG O2 Saturation 98.2 11/05/24 19:02 ABG Base Excess 0.9 mmol/L (-2.0-2.0) 11/05/24 19:02 John Test N/a 11/05/24 19:02 A-a O2 Gradient 1.6 mmHg (5-10) L 11/05/24 19:02 Hematocrit 38.2 % (37-47) 11/05/24 19:02 Hgb O2 Saturation 96.4 % (95-100) 11/05/24 19:02 Carboxyhemoglobin 1.1 %THgb (0.4-20.1) 11/05/24 19:02 Methemoglobin 0.8 % (0.4-1.5) 11/05/24 19:02 Total Hemoglobin 12.5 g/dL (12-16) 11/05/24 19:02 Sodium 140.0 mmol/L (131-143) 11/05/24 19:02 Potassium 4.0 mmol/L (3.5-5.0) 11/05/24 19:02 Glucose 90.0 mg/dL (70-115) 11/05/24 19:02 Ionized Calcium 1.2 mmol/L (1.1-1.4) 11/05/24 19:02 O2 Delivery Device Room air 11/05/24 19:02 Sizing Sponger ID [email or web address] 11/05/24 19:02 Sodium 137 mmol/L (136-145) 11/05/24 18:50 Potassium 4.1 mmol/L (3.5-5.1) 11/05/24 18:50 Chloride 101 mmol/L (98-107) 11/05/24 18:50 Carbon Dioxide 21 mmol/L (22-29) L 11/05/24 18:50 Anion Gap 19.1 (5-19) H 11/05/24 18:50 BUN 8 mg/dL (6-20) 11/05/24 18:50 Creatinine 0.7 mg/dL (0.5-0.9) 11/05/24 18:50 GFR Calculation 90.9 mL/min (90-130) 11/05/24 18:50 Glucose 101 mg/dL (65-115) 11/05/24 18:50 Calculated Osmolality 282 mOsm/kg (285-295) L 11/05/24 18:50 Lactic Acid 5.4 mmol/L (0.5-2.2) H* 11/05/24 18:50 Calcium 9.2 mg/dL (8.5-10.5) 11/05/24 18:50 Total Bilirubin 0.2 mg/dL (0.15-1.2) 11/05/24 18:50 AST 36 U/L (0-32) H 11/05/24 18:50 ALT 49 U/L (0-33) H 11/05/24 18:50 Alkaline Phosphatase 89 U/L (35-105) 11/05/24 18:50 Total Protein 7.5 g/dL (6.6-8.7) 11/05/24 18:50 Albumin 4.4 g/dL (3.5-5.2) 11/05/24 18:50 Globulin 3.1 g/dL (1.3-4.6) 11/05/24 18:50 All radiology interpretation(s) finalized by discharge Discharge Plan Discharge Patient Disposition: Xfer Short-Term Hosp Clinical Impression: Epileptic seizure, Status epilepticus Condition: Stable Discharge Diet: Usual diet Discharge Activity: Increase activity as tolerated Patient Instructions: Generalized Tonic Clonic Seizures (ED) Print Language: Japanese Coding Level of Care Code ED Superintendent Production for Sania Zaldivar
[2024-11-05] MEDS: LORazepam 1 MG/0.5 ML injection 2 MG IVP ×2 (19:04→21:21)
[2024-11-05] MEDS: levETIRAcetam 1,500 MG/100 ML PREMIX 400 MG IV (19:04)
[2024-11-05 19:11] LABS: Hematocrit 36.9 % (36-47); Hemoglobin 12.50 g/dL (11.27-16.99); Mean Corpuscular HGB Conc 33.9 g/dL (30-55); Mean Corpuscular Hemoglobin 29.9 pg (27-33); Mean Corpuscular Volume 88.3 fl (85-98); Nucleated Red Blood Cells % 0 %; Platelet Count 334 10^3/cmm (157-399); Red Blood Count 4.18 10^6/uL (3.85-5.65); White Blood Count 8.04 10^3/uL (3.29-11.43)
[2024-11-05 19:13] LABS: ABG PCO2 38.9 mmHg (35-45); ABG PH Result 7.42 (7.35-7.45); Alveolar-Arterial Oxygen Gradi 1.6 mmHg (5-10); Arterial Blood Gas Hematocrit 38.2 % (37-47); Blood Gas Sample Site Brachial, right; Blood Gas Sample Type Arterial; Carboxyhemoglobin 1.1 %THgb (0.4-20.1); Glucose Level-ABG 90.0 mg/dL (70-115); HCO3 ABG 25.3 mmol/L (22-26); Ionized Calcium Level - ABG 1.2 mmol/L (1.1-1.4); Methemoglobin 0.8 % (0.4-1.5); Oxygen Saturation ABG 98.2; PO2 ABG 88.3 mmHg (80.0-100.0); Potassium Level - ABG 4.0 mmol/L (3.5-5.0); Sodium Level - ABG 140.0 mmol/L (131-143)
[2024-11-05 19:31] LABS: Alanine Aminotransferase 49 U/L (0-33); Albumin Level 4.4 g/dL (3.5-5.2); Alkaline Phosphatase 89 U/L (35-105); Anion Gap 19.1 (5-19); Aspartate Amino Transferase 36 U/L (0-32); Blood Urea Nitrogen 8 mg/dL (6-20); Calcium 9.2 mg/dL (8.5-10.5); Carbon Dioxide 21 mmol/L (22-29); Chloride 101 mmol/L (98-107); Creatinine Clr Calc Pharmacy 125.9716; Globulin 3.1 g/dL (1.3-4.6); Glucose 101 mg/dL (65-115); Osmolality Calculated 282 mOsm/kg (285-295); Potassium 4.1 mmol/L (3.5-5.1); Sodium 137 mmol/L (136-145); Total Protein 7.5 g/dL (6.6-8.7)
[2024-11-05 19:32] LABS: Lactic Sepsis W/Reflex 5.4 mmol/L (0.5-2.2)
[2024-11-05] MEDS: midazolam 1 mg/mL INJ 2 mL 4 MG IVP (20:20)
[2024-11-05] MEDS: midazolam 1 mg/mL INJ 2 mL 2 MG IVP (20:27)
[2024-11-05 20:57] LABS: Reflex Lactate Order REFLEX LACTIC ORDERD
[2024-11-05] MEDS: levETIRAcetam 500 MG/100 ML PREMIX 400 MG IV (21:25)
== END 2024-11-05 22:02 | disposition short-term general hospital (02) ==
PROVIDERS: Emergency Provider Emergency Medicine
DX: G40.901 Epilepsy, unspecified, not intractable, with status epilepticus (principal)
CPT/HCPCS: 36600; 80051; 80053; 82330; 82805; 83605; 85025; 96365; 96375; 96376; 99285; J1953; J2060; J2250; J7030; J9999